=== PATIENT | female | born 1955 | race African-American/Black ===

== ENCOUNTER 2024-12-24 21:54 | Inpatient (IN) | payer OTHER, BC, MEDICAID ==
[~2024-12-24] VITALS: Ht 165.1 cm; Wt 123.4 kg
[~2024-12-24 21:54] MED LIST: AMLO10TA80 PO; ASPI-1160 PO; ATOR-2 PO; CARV25TA47 PO; CLOP75TA33 PO; CYCL10TA21 PO; DIAZ2TAB3 PO; ESCI20TA37 PO; FAMO40TA7 PO; GABA-290 PO; HYDR25TA PO; LOSA50TA41 PO
[2024-12-24 22:07] VITALS: O2SAT 98
[2024-12-24 22:45] LABS: BG BASE EXCESS 2.6 mmol/L (-2.0-3.0); BG CARBOXYHEMOGLOBIN 3.4 % (0.5-1.5); BG DEOXYHEMOGLOBIN 9.6 % (0.0-5.0); BG HCO3 ACT 28.2 mmol/L (21.0-28.0); BG METHEMOGLOBIN 0.0 % (0.5-1.5); BG OXYGEN SATURATION 90.1 % (94.0-98.0); BG OXYHEMOGLOBIN 87.0 % (94.0-98.0); BG PCO2 47.4 mmHg (32.0-45.0); BG PH 7.392 (7.350-7.450); BG PO2 59.3 mmHg (83.0-108.0); BG SAMPLE SITE RIGHT BRACHIAL; BG TOTAL HEMOGLOBIN 12.5 g/dL (12.0-16.0); BG VENT MODE ROOM AIR
[2024-12-24] MEDS: SODIUM CHLORIDE 0.9% 1,000 ML IV ONE (23:17)
[2024-12-25] MEDS: SODIUM CHLORIDE 0.9% (SEPSIS BOLUS) IV ONE (00:08)
[2024-12-25 00:15] LABS: HEMATOCRIT. 36.0 % (36.0-48.0); HEMOGLOBIN. 11.7 g/dL (12.0-16.0); RED BLOOD CELL COUNT 4.58 mill/uL (4.2-5.4); RED CELL DISTRIBUTION WIDTH 16.9 % (11.6-14.6)
[2024-12-25] MEDS: CEFTRIAXONE 1GM/50ML 50 ML IV ONE (00:16)
[2024-12-25 00:31] LABS: CREATININE 0.9 mg/dL (0.6-1.0); UREA NITROGEN BLOOD 18 mg/dL (9-23)
[2024-12-25 00:32] LABS: TROPONIN I HIGH SENSITIVITY 6 ng/L (3.0-34)
[2024-12-25 00:33] LABS: ASPARTATE AMINOTRANSFERASE 12 IU/L (<34); BILIRUBIN DIRECT 0.1 mg/dL (<=3.0); BILIRUBIN TOTAL 0.3 mg/dL (0.1-1.0); PROTEIN TOTAL 7.4 g/dL (6.0-8.3)
[2024-12-25] MEDS: AZITHROMYCIN 500MG/250ML 250 ML IV ONE (00:48)
[2024-12-25] MEDS: SODIUM CHLORIDE 0.9% 1,000 ML IV SCH (03:00)
[2024-12-25 03:17] LABS: INFLUENZA TYPE A Presumptive Negative (Pres. Neg.)
[2024-12-25 03:25] LABS: INFLUENZA TYPE B Presumptive Negative (Pres. Neg.); RESPIRATORY SYNCYTIAL VIRUS Not Detected (Not Detectd)
[2024-12-25 04:15] LABS: LYMPHOCYTES % MANUAL 12.0 % (20.0-60.0); MONOCYTES % MANUAL 3.0 % (2.0-8.0); NEUTROPHILS % MANUAL 85.0 % (45.0-75.0)
[2024-12-25 04:18] LABS: PLATELET ESTIMATE NORMAL
[2024-12-25 04:19] LABS: MEAN PLATELET VOLUME 10.1 fl (7.4-10.4); PLATELET 298 x1000/uL (130-400)
[2024-12-25] MEDS: IOHEXOL-350 100 ML BOTTLE ONE (07:18)
[2024-12-25 08:00] VITALS: BP 124/80; PULSE 91; RESP 18; TEMP 36.7
[2024-12-25 08:30] VITALS: BP 124/80; PULSE 91; RESP 18; TEMP 37.0852
[2024-12-25] MEDS ORDERED: ACETAMINOPHEN 325MG TABLET PO PRN (08:30)
[2024-12-25] MEDS ORDERED: CLONIDINE 0.1MG TABLET PO PRN (08:30)
[2024-12-25] MEDS ORDERED: HYDROCODONE/ACETAMINOPHEN 5/325MG TABLET PO PRN (08:30)
[2024-12-25] MEDS ORDERED: MAGNESIUM/ALUMINUM HYDROXIDE/SIMETHICONE 30ML UDC PO PRN (08:30)
[2024-12-25] MEDS ORDERED: ONDANSETRON HCL 4MG/2ML INJ IV PRN (08:30)
[2024-12-25] MEDS ORDERED: ZOLPIDEM TARTRATE 5MG TABLET PO PRN (08:30)
[2024-12-25] MEDS: ASPIRIN 81MG TABLET PO SCH (09:40)
[2024-12-25] MEDS: ENOXAPARIN 40MG/0.4ML SYR SUBCUT SCH (09:41)
[2024-12-25] MEDS: AMLODIPINE 10MG TABLET PO SCH (09:41)
[2024-12-25] MEDS: PANTOPRAZOLE SODIUM 40 MG/VIAL IV SCH (09:41)
[2024-12-25] MEDS: LOSARTAN 50 MG TABLET PO SCH (09:45)
[2024-12-25] MEDS: CITALOPRAM HYDROBROMIDE 10MG TABLET PO SCH (09:45)
[2024-12-25] MEDS: CLOPIDOGREL 75MG TABLET PO SCH (09:45)
[2024-12-25] MEDS: CARVEDILOL 12.5MG TABLET PO SCH (09:45)
[2024-12-25 12:00] VITALS: BP 114/79; PULSE 79; RESP 18; TEMP 36.6; O2SAT 98
[2024-12-25] MEDS: GABAPENTIN 300MG CAPSULE PO SCH (13:26)
[2024-12-25 16:00] VITALS: BP 105/80; PULSE 82; RESP 18; TEMP 36.7; O2SAT 98
[2024-12-25 20:00] VITALS: BP 118/56; PULSE 86; RESP 18; TEMP 36.4; O2SAT 95
[2024-12-25] MEDS: ATORVASTATIN CALCIUM 40MG TABLET PO SCH (21:01)
[2024-12-25] MEDS: CEFTRIAXONE 1GM/50ML 50 ML IV SCH (21:02)
[2024-12-26] VITALS: BP 120/66; PULSE 80; RESP 19; TEMP 36.3; O2SAT 97
[2024-12-26] MEDS ORDERED: AZITHROMYCIN 500MG/250ML 250 ML IV SCH (01:00)
[2024-12-26 04:00] VITALS: BP_SYST 126; BP_SYST 167; BP_DIAS 66; BP_DIAS 91; PULSE 104; PULSE 74; RESP 18; TEMP 36.5; TEMP 36.7; O2SAT 100; O2SAT 98
[2024-12-26 08:00] VITALS: BP_SYST 129; BP_SYST 149; BP_DIAS 73; BP_DIAS 80; PULSE 72; PULSE 79; RESP 16; RESP 17; TEMP 35.7; TEMP 35.8; O2SAT 95; O2SAT 98
[2024-12-26] MEDS: AZITHROMYCIN 500MG/250ML 250 ML IV SCH (08:31)
[2024-12-26 12:00] VITALS: BP_SYST 114; BP_SYST 167; BP_DIAS 63; BP_DIAS 85; PULSE 69; PULSE 76; RESP 17; RESP 18; TEMP 35.8; TEMP 35.9; O2SAT 99
[2024-12-26 16:00] VITALS: BP_SYST 117; BP_SYST 145; BP_DIAS 73; BP_DIAS 82; PULSE 71; PULSE 73; RESP 18; TEMP 35.9; TEMP 36.3; O2SAT 100; O2SAT 96
[2024-12-26 18:53] LABS: BASOPHILS % 0.2 % (0.0-2.0); EOSINOPHILS % 1.9 % (0.0-5.0); HEMATOCRIT. 30.3 % (36.0-48.0); HEMOGLOBIN. 9.9 g/dL (12.0-16.0); LYMPHOCYTES % 20.9 % (20.0-50.0); MEAN PLATELET VOLUME 10.1 fl (7.4-10.4); MONOCYTES % 7.3 % (2.0-8.0); NEUTROPHILS % 69.7 % (40.0-76.0); PLATELET 220 x1000/uL (130-400); RED BLOOD CELL COUNT 3.87 mill/uL (4.2-5.4); RED CELL DISTRIBUTION WIDTH 16.6 % (11.6-14.6)
[2024-12-26 19:09] LABS: UREA NITROGEN BLOOD 8 mg/dL (9-23)
[2024-12-26 19:14] LABS: CREATININE 0.5 mg/dL (0.6-1.0)
[2024-12-26 20:00] VITALS: BP 132/68; PULSE 76; RESP 19; TEMP 36.4; O2SAT 97
[2024-12-26] MEDS: CEFTRIAXONE 1GM/50ML 50 ML IV SCH (21:26)
[2024-12-27] VITALS: BP_SYST 130; BP_SYST 132; BP_DIAS 61; BP_DIAS 74; PULSE 57; PULSE 74; RESP 16; RESP 18; TEMP 36.5; TEMP 36.6; O2SAT 98; O2SAT 99
[2024-12-27 04:00] VITALS: BP 121/58; PULSE 73; RESP 18; TEMP 36.4; O2SAT 99
[2024-12-27 07:13] LABS: CREATININE 0.7 mg/dL (0.6-1.0); UREA NITROGEN BLOOD 10 mg/dL (9-23)
[2024-12-27 07:16] LABS: BASOPHILS % 0.2 % (0.0-2.0); EOSINOPHILS % 2.0 % (0.0-5.0); HEMATOCRIT. 32.2 % (36.0-48.0); HEMOGLOBIN. 10.5 g/dL (12.0-16.0); LYMPHOCYTES % 23.5 % (20.0-50.0); MEAN PLATELET VOLUME 10.0 fl (7.4-10.4); MONOCYTES % 8.3 % (2.0-8.0); NEUTROPHILS % 66.0 % (40.0-76.0); PLATELET 232 x1000/uL (130-400); RED BLOOD CELL COUNT 4.14 mill/uL (4.2-5.4); RED CELL DISTRIBUTION WIDTH 16.8 % (11.6-14.6)
[2024-12-27 08:00] VITALS: BP 129/63; PULSE 70; RESP 20; TEMP 36.2; O2SAT 95
[2024-12-27] MEDS ORDERED: AMOX1TAB16 MT (13:45)
[2024-12-27 14:11] VITALS: BP 142/67; PULSE 72; RESP 20; TEMP 97.4
== END 2024-12-27 14:58 | disposition home or self-care (01) | DRG 871 ==
LOC: ER 21:54 → 6WST 12-25 00:13 → EDBEDREQTM 12-25 00:33 → EDBEDREQ 12-25 00:33 → EDBEDREQDT 12-25 00:33 → ENRESERV 12-25 06:51
PROVIDERS: ADMIT Internal Medicine; ATTEND Internal Medicine
DX: A41.9 Sepsis, unspecified organism (principal); G93.41 Metabolic encephalopathy; I69.354 Hemiplegia and hemiparesis following cerebral infarction affecting left non-dominant side; K86.2 Cyst of pancreas; Z68.41 Body mass index [BMI] 40.0-44.9, adult; Z20.822 Contact with and (suspected) exposure to COVID-19; N39.0 Urinary tract infection, site not specified; E66.01 Morbid (severe) obesity due to excess calories; D64.9 Anemia, unspecified; E11.9 Type 2 diabetes mellitus without complications; I50.9 Heart failure, unspecified; I11.0 Hypertensive heart disease with heart failure; D25.9 Leiomyoma of uterus, unspecified; D50.9 Iron deficiency anemia, unspecified; E78.00 Pure hypercholesterolemia, unspecified; G40.909 Epilepsy, unspecified, not intractable, without status epilepticus; Z79.899 Other long term (current) drug therapy; Z87.891 Personal history of nicotine dependence
CPT/HCPCS: 36415; 36600; 71045; 71275; 74176; 80048; 80076; 82140; 82375; 82805; 83605; 84145; 84484; 85025; 87420; 87426; 87804; 93005; 93970; 96360; 96361; 97162; 97166; 99291; A4606; J0456; J0696; J1650; J2470; J7030; Q9967